=== PATIENT | male | born 1965 | race Caucasian/White ===

== ENCOUNTER 2018-05-15 13:37 | Inpatient (IN) | payer OTHER ==
[2018-05-15] MEDS ORDERED: PANTOPRAZOLE 40 MG/10 ML VIAL IVP STA (13:49)
[2018-05-15] MEDS ORDERED: SODIUM CHLORIDE 0.9% 1,000 ML IV STA (13:49)
[2018-05-15] MEDS ORDERED: ONDANSETRON 4 MG/2 ML VIAL IVP STA (14:23)
[2018-05-15] MEDS ORDERED: MORPHINE SULFATE 4 MG/ML SYRINGE IVP STA (14:24)
[2018-05-15 14:38] LABS: INR 1.4 (<1.2); Partial Thromboplastin Time 28.3 sec (22.0-30.0); Prothrombin Time 14.5 sec (9.0-12.0)
[2018-05-15 14:40] LABS: ALT 58 U/L (21-72); AST 119 U/L (17-59); Albumin 3.5 g/dL (3.5-5.0); Alkaline Phosphatase 99 U/L (38-126); Anion Gap 11 mmol/L; Basophils # (A) 0.1 k/uL (0-0.2); Basophils % (A) 1 %; Blood Urea Nitrogen 17 mg/dL (9-20); Carbon Dioxide 24 mmol/L (22-30); Chloride 107 mmol/L (98-107); Eosinophils # (A) 0.1 k/uL (0-0.7); Eosinophils % (A) 2 %; Glucose 162 mg/dL (74-99); HCT 43.2 % (39.0-53.0); HGB 14.9 gm/dL (13.0-17.5); Lipase 179 U/L (23-300); Lymphocytes # (A) 1.3 k/uL (1.0-4.8); Lymphocytes % (A) 17 %; MCH 33.8 pg (25.0-35.0); MCHC 34.5 g/dL (31.0-37.0); MCV 98.1 fL (80.0-100.0); Magnesium 1.4 mg/dL (1.6-2.3); Mean Platelet Volume 9.2; Monocytes # (A) 0.5 k/uL (0-1.0); Monocytes % (A) 6 %; Neutrophils # (A) 5.9 k/uL (1.3-7.7); Neutrophils % (A) 73 %; Potassium 4.3 mmol/L (3.5-5.1); RBC 4.41 m/uL (4.30-5.90); RDW 15.4 % (11.5-15.5); Sodium 142 mmol/L (137-145); Total Bilirubin 7.2 mg/dL (0.2-1.3); Total Protein 7.9 g/dL (6.3-8.2)
--- NOTE | 2018-05-15 14:48 | XR ---
EXAMINATION TYPE: XR chest 1V portable DATE OF EXAM: 05/15/2018 COMPARISON: NONE HISTORY: Hemoptysis TECHNIQUE: Single frontal view of the chest is obtained. FINDINGS: There are overlying cardiac leads. Patient is rotated. There is no focal air space opacity , pleural effusion, or pneumothorax seen. The cardiac silhouette size is within normal limits. The osseous structures are intact. IMPRESSION: No acute process.
--- NOTE | 2018-05-15 15:11 | ED ---
GI Bleed HPI - General Chief complaint: GI Bleed Stated complaint: Vomiting blood Time Seen by Provider: 05/15/18 13:49 Source: patient, RN notes reviewed Mode of arrival: ambulatory Limitations: no limitations - History of Present Illness Initial comments: This a 52-year-old male presents emergency Department with chief complaint of vomiting blood. Patient states started yesterday with some charcoal emesis yesterday and states that has now turned bright red blood. Patient states he has mild epigastric discomfort denies any chest pain or shortness breath. Patient states he had this problem 6 years ago from alcohol abuse. Patient states he drinks approximately every 3-4 days now. Patient states that he was never told he had varices or what the cause was in the past. Patient denies any dysuria, hematuria, melena or hematochezia. - Related Data Home Medications Medication Instructions Recorded Confirmed Ranitidine HCl [Zantac] 150 mg PO BID PRN 05/15/18 05/15/18 Allergies Allergy/AdvReac Type Severity Reaction Status Date / Time No Known Allergies Allergy Verified 05/15/18 14:56 Review of Systems ROS Statement: Those systems with pertinent positive or pertinent negative responses have been documented in the HPI. ROS Other: All systems not noted in ROS Statement are negative. Past Medical History Additional Past Medical History / Comment(s): treated 6 yrs ago for the same r/t ETOH History of Any Multi-Drug Resistant Organisms: None Reported Past Surgical History: No Surgical Hx Reported Past Psychological History: No Psychological Hx Reported Smoking Status: Current every day smoker Past Alcohol Use History: Heavy Past Drug Use History: None Reported General Exam Limitations: no limitations General appearance: alert, in no apparent distress Head exam: Present: atraumatic, normocephalic, normal inspection Eye exam: Present: normal appearance, PERRL, EOMI. Absent: scleral icterus, conjunctival injection, periorbital swelling ENT exam: Present: normal exam, normal oropharynx, mucous membranes moist, TM's normal bilaterally Neck exam: Present: normal inspection, full ROM. Absent: tenderness, meningismus, lymphadenopathy Respiratory exam: Present: normal lung sounds bilaterally. Absent: respiratory distress, wheezes, rales, rhonchi, stridor Cardiovascular Exam: Present: normal rhythm, tachycardia, normal heart sounds. Absent: systolic murmur, diastolic murmur, rubs, gallop, clicks GI/Abdominal exam: Present: soft, tenderness (Mild epigastric), normal bowel sounds. Absent: distended, guarding, rebound, rigid Course Vital Signs 05/15/18 13:41 Temperature 98.5 F Pulse Rate 132 H Respiratory 20 Rate Blood Pressure 141/86 O2 Sat by Pulse 98 Oximetry Medical Decision Making - Medical Decision Making 52-year-old male presented for hematemesis. Patient will be admitted with GI consult - Lab Data Result diagrams: 05/15/18 14:05 05/15/18 14:05 Lab Results 05/15/18 05/15/18 05/15/18 Range/Units 14:05 14:05 14:05 WBC 8.0 (3.8-10.6) k/uL RBC 4.41 (4.30-5.90) m/uL Hgb 14.9 (13.0-17.5) gm/dL Hct 43.2 (39.0-53.0) % MCV 98.1 (80.0-100.0) fL MCH 33.8 (25.0-35.0) pg MCHC 34.5 (31.0-37.0) g/dL RDW 15.4 (11.5-15.5) % Plt Count 98 L (150-450) k/uL Neutrophils % 73 % Lymphocytes % 17 % Monocytes % 6 % Eosinophils % 2 % Basophils % 1 % Neutrophils # 5.9 (1.3-7.7) k/uL Lymphocytes # 1.3 (1.0-4.8) k/uL Monocytes # 0.5 (0-1.0) k/uL Eosinophils # 0.1 (0-0.7) k/uL Basophils # 0.1 (0-0.2) k/uL Manual Slide Review Performed Target Cells Present PT 14.5 H (9.0-12.0) sec INR 1.4 H (<1.2) APTT 28.3 (22.0-30.0) sec Sodium 142 (137-145) mmol/L Potassium 4.3 (3.5-5.1) mmol/L Chloride 107 (98-107) mmol/L Carbon Dioxide 24 (22-30) mmol/L Anion Gap 11 mmol/L BUN 17 (9-20) mg/dL Creatinine 0.72 (0.66-1.25) mg/dL Est GFR (CKD-EPI)AfAm >90 (>60 ml/min/1.73 sqM) Est GFR (CKD-EPI)NonAf >90 (>60 ml/min/1.73 sqM) Glucose 162 H (74-99) mg/dL Calcium 9.0 (8.4-10.2) mg/dL Magnesium 1.4 L (1.6-2.3) mg/dL Total Bilirubin 7.2 H (0.2-1.3) mg/dL AST 119 H (17-59) U/L ALT 58 (21-72) U/L Alkaline Phosphatase 99 (38-126) U/L Troponin I (0.000-0.034) ng/mL Total Protein 7.9 (6.3-8.2) g/dL Albumin 3.5 (3.5-5.0) g/dL Lipase 179 (23-300) U/L 05/15/18 Range/Units 14:05 WBC (3.8-10.6) k/uL RBC (4.30-5.90) m/uL Hgb (13.0-17.5) gm/dL Hct (39.0-53.0) % MCV (80.0-100.0) fL MCH (25.0-35.0) pg MCHC (31.0-37.0) g/dL RDW (11.5-15.5) % Plt Count (150-450) k/uL Neutrophils % % Lymphocytes % % Monocytes % % Eosinophils % % Basophils % % Neutrophils # (1.3-7.7) k/uL Lymphocytes # (1.0-4.8) k/uL Monocytes # (0-1.0) k/uL Eosinophils # (0-0.7) k/uL Basophils # (0-0.2) k/uL Manual Slide Review Target Cells PT (9.0-12.0) sec INR (<1.2) APTT (22.0-30.0) sec Sodium (137-145) mmol/L Potassium (3.5-5.1) mmol/L Chloride (98-107) mmol/L Carbon Dioxide (22-30) mmol/L Anion Gap mmol/L BUN (9-20) mg/dL Creatinine (0.66-1.25) mg/dL Est GFR (CKD-EPI)AfAm (>60 ml/min/1.73 sqM) Est GFR (CKD-EPI)NonAf (>60 ml/min/1.73 sqM) Glucose (74-99) mg/dL Calcium (8.4-10.2) mg/dL Magnesium (1.6-2.3) mg/dL Total Bilirubin (0.2-1.3) mg/dL AST (17-59) U/L ALT (21-72) U/L Alkaline Phosphatase (38-126) U/L Troponin I 0.017 (0.000-0.034) ng/mL Total Protein (6.3-8.2) g/dL Albumin (3.5-5.0) g/dL Lipase (23-300) U/L - EKG Data EKG Comments: EKG performed at 14:21 sinus tachycardia with a rate of 110 OH 158 QRS 62 QT/QTC 312/422 Critical Care Time Critical Care Time: Yes Total Critical Care Time: 35 Critical Care Time: 35 minutes of critical care time her initially used to evaluate the patient, reviewed vitals, reviewed past medical history. Lab work including CBC, CMP, PT/INR were ordered. This did reveal a normal hemoglobin, elevated INR, hyperbilirubinemia and mild transaminitis. This is related to his alcohol int daniel. Patient was admitted for upper GI bleed most likely alcoholic gastritis versus esophageal varices. Patient is given Protonix 80 mg, Sandostatin. Case discussed with admitting physician consult to GI. Patient will be placed in telemetry. Disposition Clinical Impression: Upper GI bleed, Alcohol abuse, Hyperbilirubinemia Disposition: ADMITTED IP TO THIS HOSP Condition: Fair Referrals: Tony Khanna III, MD [Primary Care Provider] - 1-2 days
[2018-05-15 15:23] LABS: Platelet Count 98 k/uL (150-450); Target Cells Present
[2018-05-15] MEDS ORDERED: OCTREOTIDE 100 MCG/ML INJ IVP STA (15:32)
[2018-05-15] MEDS ORDERED: NALOXONE 0.4 MG/ML 1 ML VIAL IV PRN (15:34)
[2018-05-15] MEDS: SODIUM CHLORIDE 0.9% 1,000 ML IV SCH (16:13)
[2018-05-15] MEDS: MORPHINE SULFATE 4 MG/ML SYRINGE IV PRN ×2 (19:23→23:46)
[2018-05-15 21:24] LABS: Basophils % (A) 1 %; Eosinophils # (A) 0.1 k/uL (0-0.7); Eosinophils % (A) 2 %; HCT 39.7 % (39.0-53.0); HGB 13.3 gm/dL (13.0-17.5); Lymphocytes # (A) 1.2 k/uL (1.0-4.8); Lymphocytes % (A) 20 %; MCH 33.2 pg (25.0-35.0); MCHC 33.4 g/dL (31.0-37.0); MCV 99.4 fL (80.0-100.0); Macrocytosis Slight; Mean Platelet Volume 9.9; Monocytes # (A) 0.4 k/uL (0-1.0); Monocytes % (A) 6 %; Neutrophils # (A) 4.1 k/uL (1.3-7.7); Neutrophils % (A) 70 %; RDW 15.4 % (11.5-15.5); WBC 5.9 k/uL (3.8-10.6)
[2018-05-15 21:37] LABS: Platelet Count 68 k/uL (150-450)
[2018-05-15] MEDS ORDERED: Magnesium Replacement Protocol 1 EACH MISC MISCELLANE PRN (21:43)
[2018-05-15] MEDS: PANTOPRAZOLE 40 MG/10 ML VIAL IV SCH (22:23)
[2018-05-15] MEDS: MAGNESIUM SULFATE-D5W PMX 1 GM in DEXTROSE/WATER 1 100ML.BAG IVPB SCH ×2 (22:23→23:47)
[2018-05-15] MEDS: ONDANSETRON 4 MG/2 ML VIAL IVP PRN (22:23)
--- NOTE | 2018-05-15 22:55 | P.HPIM ---
History of Present Illness H&P Date: 05/15/18 Chief Complaint: Blood in the vomitus Patient is a 52-year-old male with a known history of smoking and history of heavy alcohol abuse previously came to ER with complaints of vomiting blood. Patient did have dark-colored vomitus yesterday and bright red blood today. Patient also having mild epigastric discomfort and pain. Denied any dizziness or lightheadedness. No fever no chills. Patient used to drink heavily previously. Currently is not drinking on a daily basis. His last drink was 3-4 days ago. Patient did have dark-colored stools one time yesterday. Patient says that is currently in a stressful situation at home. Patient was on antibiotics for bronchitis recently. No fever no chills. Patient does have nausea. Nausea did improve with Zofran in the ER. No leg swelling. Chest x-ray showed no acute process EKG showed sinus tachycardia. Patient does have elevated AST level and INR is 1.4 Review of Systems Constitutional: Patient denies any fever or chills . No generalized weakness or weight loss. Abdomen: Patient does have nausea and blood vomitus. Epigastric abdominal pain. No diarrhea.. Cardiovascular: Patient denies any chest pain or short of breath no palpitations. Respiratory: patient denied any cough is from production. No shortness of breath Neurologic: Patient denied any numbness or tingling headache. Musculoskeletal: Patient denies any complaints of joint swelling or deformity. Skin: Negative Psychiatric: Negative Endocrine: No heat or cold intolerance. No recent weight gain. Genitourinary: No dysuria or hematuria. All other 14 point ROS negative except the above Past Medical History Additional Past Medical History / Comment(s): treated 6 yrs ago for the same r/t ETOH History of Any Multi-Drug Resistant Organisms: None Reported Past Surgical History: No Surgical Hx Reported Past Psychological History: No Psychological Hx Reported Smoking Status: Current every day smoker Past Alcohol Use History: Heavy Past Drug Use History: None Reported Medications and Allergies Home Medications Medication Instructions Recorded Confirmed Type Ranitidine HCl [Zantac] 150 mg PO BID PRN 05/15/18 05/15/18 History Allergies Allergy/AdvReac Type Severity Reaction Status Date / Time No Known Allergies Allergy Verified 05/15/18 14:56 Physical Exam Vitals: Vital Signs Temp Pulse Resp BP Pulse Ox 04/05/19 20:20 103 H 18 138/87 95 05/15/18 20:10 117 H 18 136/78 95 05/15/18 20:00 112 H 16 128/81 93 L 05/15/18 19:50 120 H 13 128/81 95 05/15/18 19:40 109 H 9 L 125/114 94 L 05/15/18 19:30 105 H 15 117/83 93 L 05/15/18 19:20 113 H 10 L 117/83 95 05/15/18 19:10 109 H 7 L 152/90 94 L 05/15/18 19:00 111 H 12 150/95 93 L 05/15/18 18:50 114 H 12 150/95 95 05/15/18 18:40 109 H 19 150/98 94 L 05/15/18 18:30 98.8 F 116 H 14 158/103 94 L 05/15/18 18:20 112 H 13 158/103 93 L 05/15/18 18:10 112 H 16 155/104 93 L 05/15/18 18:00 112 H 16 149/99 94 L 05/15/18 17:50 112 H 18 149/99 94 L 05/15/18 17:40 110 H 18 141/99 93 L 05/15/18 17:30 111 H 19 149/99 05/15/18 17:20 112 H 14 149/99 95 05/15/18 17:10 12 157/105 05/15/18 17:00 118 H 12 137/91 95 05/15/18 16:50 111 H 25 H 137/91 95 05/15/18 16:40 112 H 18 141/105 94 L 05/15/18 16:30 107 H 14 157/111 94 L 05/15/18 16:20 97 14 157/111 95 05/15/18 16:10 109 H 23 134/102 95 05/15/18 16:00 118 H 32 H 127/100 96 05/15/18 15:50 111 H 14 127/100 95 05/15/18 15:40 112 H 12 127/100 96 05/15/18 15:30 121 H 16 152/103 96 05/15/18 15:20 110 H 14 152/103 94 L 05/15/18 15:10 105 H 14 149/104 95 05/15/18 15:00 120 H 16 141/102 95 05/15/18 14:50 113 H 13 141/102 96 05/15/18 14:40 112 H 14 166/100 96 05/15/18 14:30 124 H 14 140/106 98 05/15/18 14:20 106 H 25 H 140/106 96 05/15/18 14:10 114 H 14 122/108 97 05/15/18 14:06 29 H 05/15/18 13:41 98.5 F 132 H 20 141/86 98 Intake and Output 05/15/18 05/15/18 05/15/18 06:59 14:59 22:59 Intake Total 1000 Balance 1000 Intake: Amount of Fluid Infused ( 1000 ml) Other: Weight 105.823 kg PHYSICAL EXAMINATION: Patient is lying in the bed comfortably, no acute distress, awake alert and oriented.. HEENT: Normocephalic. Neck is supple. Pupils reactive. Nostrils clear. Oral cavity is moist. Ears reveal no drainage. Neck reveals no JVD, carotid bruits, or thyromegaly. CHEST EXAMINATION: Trachea is central. Symmetrical expansion. Lung campbell clear to auscultation and percussion. CARDIAC: Normal S1, S2 with no gallops. No murmurs ABDOMEN: Soft. Bowel sounds normal. No organomegaly. No abdominal bruits. Extremities: reveal no edema. No clubbing or cyanosis Neurologically awake, alert, oriented x3 with well-coordinated movements. No focal deficits noted Skin: No rash or skin lesions. Psychiatric: Coperative. Nonsuicidal Musculoskeletal: No joint swelling or deformity. Normal range of motion. Results CBC & Chem 7: 05/15/18 20:20 05/15/18 14:05 Labs: Abnormal Lab Results - Last 24 Hours (Table) 05/15/18 05/15/18 05/15/18 Range/Units 14:05 14:05 14:05 RBC (4.30-5.90) m/uL Plt Count 98 L (150-450) k/uL PT 14.5 H (9.0-12.0) sec INR 1.4 H (<1.2) Glucose 162 H (74-99) mg/dL Magnesium 1.4 L (1.6-2.3) mg/dL Total Bilirubin 7.2 H (0.2-1.3) mg/dL AST 119 H (17-59) U/L 05/15/18 Range/Units 20:20 RBC 4.00 L (4.30-5.90) m/uL Plt Count 68 L (150-450) k/uL PT (9.0-12.0) sec INR (<1.2) Glucose (74-99) mg/dL Magnesium (1.6-2.3) mg/dL Total Bilirubin (0.2-1.3) mg/dL AST (17-59) U/L Thrombosis Risk Factor Assmnt - DVT/VTE Prophylaxis DVT/VTE Prophylaxis: Mechanical Prophylaxis ordered Assessment and Plan Assessment: Acute upper GI bleed. Likely alcohol related. Gastritis, ulcer, variceal versus tear. Acute blood loss anemia Elevated liver enzymes and INR/coagulopathy due to chronic liver disease History of heavy alcohol use Nicotine addiction DVT prophylaxis with SCDs Plan: Patient be continued on IV hydration, IV Protonix and nothing by mouth. Monitor H&H. Gastroenterology was consulted. We will follow up closely and further recommendations based on the clinical course. Time with Patient: Greater than 30
[2018-05-16 00:44] VITALS: BMI 31.6
[2018-05-16] MEDS: MAGNESIUM SULFATE-D5W PMX 1 GM in DEXTROSE/WATER 1 100ML.BAG IVPB SCH (01:01)
[2018-05-16] MEDS: SODIUM CHLORIDE 0.9% 1,000 ML IV SCH ×3 (01:02→20:57)
[2018-05-16] MEDS: OCTREOTIDE 100 MCG/ML INJ IVP SCH ×3 (03:27→18:05)
[2018-05-16] MEDS: MORPHINE SULFATE 4 MG/ML SYRINGE IV PRN ×4 (03:33→21:49)
[2018-05-16] MEDS: ONDANSETRON 4 MG/2 ML VIAL IVP PRN (06:53)
[2018-05-16 09:05] LABS: Basophils % (A) 1 %; Eosinophils # (A) 0.2 k/uL (0-0.7); Eosinophils % (A) 3 %; HCT 37.5 % (39.0-53.0); HGB 12.3 gm/dL (13.0-17.5); Lymphocytes # (A) 1.1 k/uL (1.0-4.8); Lymphocytes % (A) 19 %; MCH 32.8 pg (25.0-35.0); MCHC 32.9 g/dL (31.0-37.0); MCV 99.7 fL (80.0-100.0); Macrocytosis Slight; Mean Platelet Volume 9.5; Monocytes # (A) 0.4 k/uL (0-1.0); Monocytes % (A) 7 %; Neutrophils % (A) 70 %; RBC 3.76 m/uL (4.30-5.90); RDW 14.9 % (11.5-15.5); WBC 5.8 k/uL (3.8-10.6)
[2018-05-16 09:10] LABS: Platelet Count 62 k/uL (150-450)
[2018-05-16 09:11] LABS: Anion Gap 7 mmol/L; Blood Urea Nitrogen 18 mg/dL (9-20); Carbon Dioxide 25 mmol/L (22-30); Chloride 109 mmol/L (98-107); Glucose 117 mg/dL (74-99); Potassium 4.2 mmol/L (3.5-5.1); Sodium 141 mmol/L (137-145)
[2018-05-16] MEDS: PANTOPRAZOLE 40 MG/10 ML VIAL IV SCH ×2 (09:55→20:50)
[2018-05-16] MEDS ORDERED: MAGNESIUM SULFATE-D5W PMX 1 GM in DEXTROSE/WATER 1 100ML.BAG IVPB ONE (16:23)
--- NOTE | 2018-05-17 01:38 | P.PN ---
Subjective Progress Note Date: 05/16/18 Principal diagnosis: Acute GI bleed Patient is a 52-year-old male with a known history of smoking and history of heavy alcohol abuse previously came to ER with complaints of vomiting blood. Patient did have dark-colored vomitus yesterday and bright red blood today. Patient also having mild epigastric discomfort and pain. Denied any dizziness or lightheadedness. No fever no chills. Patient used to drink heavily previously. Currently is not drinking on a daily basis. His last drink was 3-4 days ago. Patient did have dark-colored stools one time yesterday. Patient sa ys that is currently in a stressful situation at home. Patient was on antibiotics for bronchitis recently. No fever no chills. Patient does have nausea. Nausea did improve with Zofran in the ER. No leg swelling. Chest x-ray showed no acute process EKG showed sinus tachycardia. Patient does have elevated AST level and INR is 1.4, hemoglobin 14.9 05/16/2018 Patient denied any further episodes of hematemesis. Hemoglobin is 12.3 today. Patient is being continued on Protonix. No complaints of chest pain or shortness of breath. Patient is lying in the bed comfortably. No other acute overnight issues. GI was consulted. No fever no chills. No nausea vomiting or diarrhea. No headache or dizziness or lightheadedness. Current medications reviewed. Objective - Vital Signs Vital signs: Vital Signs Temp 98.3 F 05/16/18 12:00 Pulse 103 H 05/16/18 16:00 Resp 18 05/16/18 16:00 BP 136/85 05/16/18 16:00 Pulse Ox 94 L 05/16/18 16:00 Intake & Output 05/16/18 05/16/18 05/17/18 06:59 18:59 06:59 Intake Total 2140 360 Balance 2140 360 Weight 105 kg Intake: Amount of Fluid Infused ( 1000 ml) Intake, IV Titration 600 Amount Magnesium Sulfate-D5w Pmx 200 1 gm In Dextrose/Water 1 100ml.bag @ 100 mls/hr IVPB Q1H [facility] Rx#: [id number] Sodium Chloride 0.9% 1, 400 000 ml @ 100 mls/hr IV . Q10H [facility] Rx#:[id number] Oral 360 Other 540 Other: Voiding Method Toilet Toilet # Voids 1 1 1 # Bowel Movements 2 - Exam PHYSICAL EXAMINATION: Patient is lying in the bed comfortably, no acute distress, awake alert and oriented.. HEENT: Normocephalic. Neck is supple. Pupils reactive. Nostrils clear. Oral cavity is moist. Ears reveal no drainage. Neck reveals no JVD, carotid bruits, or thyromegaly. CHEST EXAMINATION: Trachea is central. Symmetrical expansion. Lung campbell clear to auscultation and percussion. CARDIAC: Normal S1, S2 with no gallops. No murmurs ABDOMEN: Soft. Bowel sounds normal. No organomegaly. No abdominal bruits. Extremities: reveal no edema. No clubbing or cyanosis Neurologically awake, alert, oriented x3 with well-coordinated movements. No focal deficits noted Skin: No rash or skin lesions. Psychiatric: Coperative. Nonsuicidal Musculoskeletal: No joint swelling or deformity. Normal range of motion. - Labs CBC & Chem 7: 05/16/18 06:14 05/16/18 06:14 Labs: Abnormal Lab Results - Last 24 Hours (Table) 05/16/18 05/16/18 Range/Units 06:14 06:14 RBC 3.76 L (4.30-5.90) m/uL Hgb 12.3 L (13.0-17.5) gm/dL Hct 37.5 L (39.0-53.0) % Plt Count 62 L (150-450) k/uL Chloride 109 H (98-107) mmol/L Glucose 117 H (74-99) mg/dL Calcium 8.0 L (8.4-10.2) mg/dL Assessment and Plan Assessment: Acute upper GI bleed. Likely alcohol related. Gastritis, ulcer, variceal versus tear. Acute blood loss anemia Hyperbilirubinemia Elevated liver enzymes and INR/coagulopathy due to chronic liver disease History of heavy alcohol use Nicotine addiction DVT prophylaxis with SCDs Plan: Patient be continued on IV hydration, IV Protonix and nothing by mouth. Monitor H&H. Gastroenterology is following. We will follow up closely and further recommendations based on the clinical course. Time with Patient: Greater than 30
[2018-05-17] MEDS: MORPHINE SULFATE 4 MG/ML SYRINGE IV PRN ×3 (02:36→19:56)
[2018-05-17] MEDS: OCTREOTIDE 100 MCG/ML INJ IVP SCH ×2 (04:16→10:11)
[2018-05-17 07:21] LABS: ALT 48 U/L (21-72); AST 105 U/L (17-59); Albumin 2.6 g/dL (3.5-5.0); Alkaline Phosphatase 76 U/L (38-126); Anion Gap 5 mmol/L; Blood Urea Nitrogen 15 mg/dL (9-20); Calcium 7.5 mg/dL (8.4-10.2); Carbon Dioxide 26 mmol/L (22-30); Chloride 110 mmol/L (98-107); Glucose 95 mg/dL (74-99); Potassium 3.9 mmol/L (3.5-5.1); Sodium 141 mmol/L (137-145); Total Bilirubin 3.9 mg/dL (0.2-1.3); Total Protein 6.1 g/dL (6.3-8.2)
[2018-05-17 07:40] LABS: Basophils % (A) 1 %; Eosinophils # (A) 0.2 k/uL (0-0.7); Eosinophils % (A) 6 %; HCT 33.4 % (39.0-53.0); HGB 11.1 gm/dL (13.0-17.5); Lymphocytes # (A) 0.8 k/uL (1.0-4.8); Lymphocytes % (A) 24 %; MCH 33.4 pg (25.0-35.0); MCHC 33.2 g/dL (31.0-37.0); MCV 100.5 fL (80.0-100.0); Macrocytosis Slight; Mean Platelet Volume 9.8; Monocytes # (A) 0.2 k/uL (0-1.0); Monocytes % (A) 6 %; Neutrophils # (A) 2.1 k/uL (1.3-7.7); Neutrophils % (A) 60 %; RBC 3.32 m/uL (4.30-5.90); WBC 3.4 k/uL (3.8-10.6)
[2018-05-17 07:50] LABS: Platelet Count 50 k/uL (150-450)
[2018-05-17] MEDS: PANTOPRAZOLE 40 MG/10 ML VIAL IV SCH (08:42)
[2018-05-17] MEDS: MAGNESIUM SULFATE-D5W PMX 1 GM in DEXTROSE/WATER 1 100ML.BAG IVPB SCH ×2 (10:11→12:30)
[2018-05-17] MEDS ORDERED: MIDAZOLAM 2 MG/2 ML VIAL ONE (12:14)
[2018-05-17] MEDS ORDERED: PROPOFOL 10 MG/ML 20 ML VIAL IV ONE (12:14)
[2018-05-17] MEDS ORDERED: IV FLUID CONTINUATION 1,000 ML IV ONE (12:23)
--- NOTE | 2018-05-17 12:24 | P.CONS ---
History of Present Illness - Reason for Consult Consult date: 05/16/18 Hematemesis - History of Present Illness This a 52-year-old male presents emergency Department with chief complaint of vomiting blood. Patient states started yesterday with some charcoal emesis yesterday and states that has now turned bright red blood. Patient states he has mild epigastric discomfort denies any chest pain or shortness breath. Patient states he had this problem 6 years ago from alcohol abuse. Patient states he drinks approximately every 3-4 days now. Patient states that he was never told he had varices or what the cause was in the past. Patient denies any dysuria, hematuria, melena or hematochezia. Review of Systems CONSTITUTIONAL: Denies any fevers, chills, weight change or fatigue. CARDIOVASCULAR: Denies any chest pain, palpitations high or low blood pressures RESPIRATORY: Denies any shortness of breath, hemoptysis or cough. GENITOURINARY: No dysuria or hematuria. MUSCULOSKELETAL: No weakness reported. SKIN: Denies any new rashes or lesions, jaundice or pallor. PSYCHIATRIC: Denies any depression or anxiety. NEUROLOGY: Denies headache, denies any new focal deficits. EARS/NOSE/THROAT: No recent hearing change, congestion, nasal discharge or sore throat. EYES: No pain in eyes, discharge or change in vision. GASTROINTESTINAL: As per HPI. Past Medical History Past Medical History: GI Bleed Additional Past Medical History / Comment(s): treated 6 yrs ago for the same r/t ETOH History of Any Multi-Drug Resistant Organisms: None Reported Past Surgical History: No Surgical Hx Reported Past Anesthesia/Blood Transfusion Reactions: No Reported Reaction Past Psychological History: No Psychological Hx Reported Smoking Status: Current every day smoker Past Alcohol Use History: Heavy Past Drug Use History: None Reported - Past Family History Father Additional Family Medical History / Comment(s): patient state his dads side had heart disease and leukemia Mother Additional Family Medical History / Comment(s): chrones disease Medications and Allergies Home Medications Medication Instructions Recorded Confirmed Type Ranitidine HCl [Zantac] 150 mg PO BID PRN 05/15/18 05/15/18 History Allergies Allergy/AdvReac Type Severity Reaction Status Date / Time No Known Allergies Allergy Verified 05/15/18 14:56 Physical Exam Vitals: Vital Signs Temp Pulse Pulse Resp BP BP Pulse Ox 05/16/18 02:00 97.9 F 110 H 18 138/81 93 L 05/15/18 22:05 107 H 18 05/15/18 21:45 98.3 F 107 H 18 149/72 97 05/15/18 20:20 103 H 18 138/87 95 05/15/18 20:10 117 H 18 136/78 95 05/15/18 20:00 112 H 16 128/81 93 L 05/15/18 19:50 120 H 13 128/81 95 05/15/18 19:40 109 H 9 L 125/114 94 L 05/15/18 19:30 105 H 15 117/83 93 L 05/15/18 19:20 113 H 10 L 117/83 95 05/15/18 19:10 109 H 7 L 152/90 94 L 05/15/18 19:00 111 H 12 150/95 93 L 05/15/18 18:50 114 H 12 150/95 95 05/15/18 18:40 109 H 19 150/98 94 L 05/15/18 18:30 98.8 F 116 H 14 158/103 94 L 05/15/18 18:20 112 H 13 158/103 93 L 05/15/18 18:10 112 H 16 155/104 93 L 05/15/18 18:00 112 H 16 149/99 94 L 05/15/18 17:50 112 H 18 149/99 94 L 05/15/18 17:40 110 H 18 141/99 93 L 05/15/18 17:30 111 H 19 149/99 05/15/18 17:20 112 H 14 149/99 95 05/15/18 17:10 12 157/105 05/15/18 17:00 118 H 12 137/91 95 05/15/18 16:50 111 H 25 H 137/91 95 05/15/18 16:40 112 H 18 141/105 94 L 05/15/18 16:30 107 H 14 157/111 94 L 05/15/18 16:20 97 14 157/111 95 05/15/18 16:10 109 H 23 134/102 95 05/15/18 16:00 118 H 32 H 127/100 96 05/15/18 15:50 111 H 14 127/100 95 05/15/18 15:40 112 H 12 127/100 96 05/15/18 15:30 121 H 16 152/103 96 05/15/18 15:20 110 H 14 152/103 94 L 05/15/18 15:10 105 H 14 149/104 95 05/15/18 15:00 120 H 16 141/102 95 05/15/18 14:50 113 H 13 141/102 96 05/15/18 14:40 112 H 14 166/100 96 05/15/18 14:30 124 H 14 140/106 98 05/15/18 14:20 106 H 25 H 140/106 96 05/15/18 14:10 114 H 14 122/108 97 05/15/18 14:06 29 H 05/15/18 13:41 98.5 F 132 H 20 141/86 98 Intake and Output 05/15/18 05/16/18 05/16/18 22:59 06:59 14:59 Intake Total 1000 1140 120 Balance 1000 1140 120 Intake: Amount of Fluid Infused ( 1000 ml) Intake, IV Titration 600 Amount Magnesium Sulfate-D5w Pmx 200 1 gm In Dextrose/Water 1 100ml.bag @ 100 mls/hr IVPB Q1H [facility] Rx#: [id number] Sodium Chloride 0.9% 1, 400 000 ml @ 100 mls/hr IV . Q10H [facility] Rx#:[id number] Oral 120 Other 540 Other: Voiding Method Toilet Toilet # Voids 1 # Bowel Movements 2 Weight 105 kg On physical examination, patient appears very pleasant, stated age in no apparent distress. HEAD: Normocephalic, atraumatic. EYES: No scleral icterus. No conjunctival injection. MOUTH: No lesions, tongue midline. NECK: Trachea midline, no gross abnormalities. CHEST: Clear to auscultation with no wheezing or rhonchi appreciated. HEART: Regular, no abnormal solids, murmurs, gallops or friction rubs. ABDOMEN: Soft. Bowel sounds are positive. No organomegaly. No guarding or rigidity. EXTREMITIES: No pedal edema. SKIN: No rashes, no jaundice. NEUROLOGIC: Alert and oriented. No focal deficits. Results CBC & Chem 7: 05/17/18 05:53 05/17/18 05:53 Labs: Abnormal Lab Results - Last 24 Hours (Table) 05/15/18 05/15/18 05/15/18 Range/Units 14:05 14:05 14:05 RBC (4.30-5.90) m/uL Hgb (13.0-17.5) gm/dL Hct (39.0-53.0) % Plt Count 98 L (150-450) k/uL PT 14.5 H (9.0-12.0) sec INR 1.4 H (<1.2) Chloride (98-107) mmol/L Glucose 162 H (74-99) mg/dL Calcium (8.4-10.2) mg/dL Magnesium 1.4 L (1.6-2.3) mg/dL Total Bilirubin 7.2 H (0.2-1.3) mg/dL AST 119 H (17-59) U/L 05/15/18 05/16/18 05/16/18 Range/Units 20:20 06:14 06:14 RBC 4.00 L 3.76 L (4.30-5.90) m/uL Hgb 12.3 L (13.0-17.5) gm/dL Hct 37.5 L (39.0-53.0) % Plt Count 68 L 62 L (150-450) k/uL PT (9.0-12.0) sec INR (<1.2) Chloride 109 H (98-107) mmol/L Glucose 117 H (74-99) mg/dL Calcium 8.0 L (8.4-10.2) mg/dL Magnesium (1.6-2.3) mg/dL Total Bilirubin (0.2-1.3) mg/dL AST (17-59) U/L Assessment and Plan Assessment: GI bleeding, could be secondary to mucosal tears, varices or peptic ulcer disease. Plan: We will proceed with EGD tomorrow.
--- NOTE | 2018-05-17 12:42 | P.PCN ---
Date of Procedure: 05/17/18 Procedure(s) Performed: Procedure: Esophagogastroduodenoscopy. Preoperative diagnosis: Upper GI bleeding. Postoperative diagnosis: Gastritis and duodenitis with no active bleeding at the time of this exam. Preparation and sedation: Was provided by anesthesia. Brief clinical history: The patient is a 52-year-old male who presented to the Emergency Department with chief complaint of vomiting blood. Patient states started to have some coffee ground emesis the day prior to admission then turns bloody on day of admission. Patient states he has mild epigastric discomfort denies any chest pain or shortness breath. Patient states he had this problem 6 years ago from alcohol abuse. Patient states he drinks approximately every 3-4 days now. Patient states that he was never told he had varices or what the cause was in the past. Patient denies any dysuria, hematuria, melena or hematochezia. The details are summarized in the history and physical and dictated consultations and progress note. This evaluation is to assess for a source of upper GI bleeding. Procedure: With the patient on his left lateral decubitus position and after informed consent and adequate sedation, I passed the Olympus-GIF date 119 video upper endoscope through the cricopharyngeus down the esophagus. The esophagus did not show any obvious varices, erosions or ulcers or any mucosal tears or bleeding. The endoscope was then passed into the stomach. No definite hiatal hernia. The stomach was insufflated with air and inspected in detail including the retroflex view in the cardia. There was diffuse mild mottling and erythema consistent with mild gastritis but no ulcers, bleeding or gastric varices. Pyloric channel did not show any ulcers. Duodenal bulb, post bulbar area and descending duodenum showed some erythema and minimal friability with no ulcers or bleeding. No biopsies were indicated then the endoscope was withdrawn. The patient tolerated the procedure well. Plan: The patient was reassured. I suspect, the bleeding could have originated any mucosal tears secondary to his vomiting which could have been related to alcoholic gastritis. We will advise complete and total abstinence from drinking alcohol and allow diet as tolerated. Further plans based on his course. Would be happy to see in the office to comanage what appears to be alcoholic liver disease.
[2018-05-17] MEDS: SODIUM CHLORIDE 0.9% 1,000 ML IV SCH ×2 (19:44→19:58)
[2018-05-17] MEDS: PANTOPRAZOLE 40 MG TABLET PO SCH (19:56)
--- NOTE | 2018-05-18 | P.PN ---
Subjective Progress Note Date: 05/17/18 Principal diagnosis: Acute GI bleed Patient is a 52-year-old male with a known history of smoking and history of heavy alcohol abuse previously came to ER with complaints of vomiting blood. Patient did have dark-colored vomitus yesterday and bright red blood today. Patient also having mild epigastric discomfort and pain. Denied any dizziness or lightheadedness. No fever no chills. Patient used to drink heavily previously. Currently is not drinking on a daily basis. His last drink was 3-4 days ago. Patient did have dark-colored stools one time yesterday. Patient sa ys that is currently in a stressful situation at home. Patient was on antibiotics for bronchitis recently. No fever no chills. Patient does have nausea. Nausea did improve with Zofran in the ER. No leg swelling. Chest x-ray showed no acute process EKG showed sinus tachycardia. Patient does have elevated AST level and INR is 1.4, hemoglobin 14.9 05/16/2018 Patient denied any further episodes of hematemesis. Hemoglobin is 12.3 today. Patient is being continued on Protonix. No complaints of chest pain or shortness of breath. Patient is lying in the bed comfortably. No other acute overnight issues. GI was consulted. No fever no chills. No nausea vomiting or diarrhea. No headache or dizziness or lightheadedness. 05/17/2018 Patient denied any complaints of dizziness or lightheadedness. No chest pain or shortness of breath. No nausea vomiting or diarrhea. EGD showed Gastritis and duodenitis with no active bleeding at the time of this exam. Patient is being continued on PPI. Monitor H&H. If hemoglobin is stable, anticipate discharge in next 24 hours. Recommends outpatient GI follow- up. Current medications reviewed. Objective - Vital Signs Vital signs: Vital Signs Temp 98.5 F 05/17/18 16:00 Pulse 90 05/17/18 16:00 Resp 18 05/17/18 16:00 BP 123/77 05/17/18 16:00 Pulse Ox 95 05/17/18 16:00 Intake & Output 05/17/18 05/17/18 05/18/18 06:59 18:59 06:59 Intake Total 1480 440 Balance 1480 440 Weight 99.2 kg Intake: IV 200 Intake, IV Titration 1000 Amount Sodium Chloride 0.9% 1, 1000 000 ml @ 100 mls/hr IV . Q10H [facility] Rx#:[id number] Oral 480 240 Other: Voiding Method Toilet Toilet # Voids 4 # Bowel Movements 1 - Exam PHYSICAL EXAMINATION: Patient is lying in the bed comfortably, no acute distress, awake alert and oriented.. HEENT: Normocephalic. Neck is supple. Pupils reactive. Nostrils clear. Oral cavity is moist. Ears reveal no drainage. Neck reveals no JVD, carotid bruits, or thyromegaly. CHEST EXAMINATION: Trachea is central. Symmetrical expansion. Lung campbell clear to auscultation and percussion. CARDIAC: Normal S1, S2 with no gallops. No murmurs ABDOMEN: Soft. Bowel sounds normal. No organomegaly. No abdominal bruits. Extremities: reveal no edema. No clubbing or cyanosis Neurologically awake, alert, oriented x3 with well-coordinated movements. No focal deficits noted Skin: No rash or skin lesions. Psychiatric: Coperative. Nonsuicidal Musculoskeletal: No joint swelling or deformity. Normal range of motion. - Labs CBC & Chem 7: 05/17/18 05:53 05/17/18 05:53 Labs: Abnormal Lab Results - Last 24 Hours (Table) 05/17/18 05/17/18 Range/Units 05:53 05:53 WBC 3.4 L (3.8-10.6) k/uL RBC 3.32 L (4.30-5.90) m/uL Hgb 11.1 L (13.0-17.5) gm/dL Hct 33.4 L (39.0-53.0) % MCV 100.5 H (80.0-100.0) fL Plt Count 50 L (150-450) k/uL Lymphocytes # 0.8 L (1.0-4.8) k/uL Chloride 110 H (98-107) mmol/L Calcium 7.5 L (8.4-10.2) mg/dL Total Bilirubin 3.9 H (0.2-1.3) mg/dL AST 105 H (17-59) U/L Total Protein 6.1 L (6.3-8.2) g/dL Albumin 2.6 L (3.5-5.0) g/dL Assessment and Plan Assessment: Acute upper GI bleed. Status post EGD.Gastritis and duodenitis with no active bleeding. Acute blood loss anemia Hyperbilirubinemia Elevated liver enzymes and INR/coagulopathy due to chronic liver disease History of heavy alcohol use Nicotine addiction DVT prophylaxis with SCDs Plan: Patient be continued on IV hydration, IV Protonix and nothing by mouth. Protonix changed to by mouth. Monitor H&H. Gastroenterology is following. We will follow up closely and further recommendations based on the clinical course. Time with Patient: Greater than 30
[2018-05-18] MEDS: MORPHINE SULFATE 4 MG/ML SYRINGE IV PRN ×3 (01:13→09:25)
[2018-05-18] MEDS: PANTOPRAZOLE 40 MG TABLET PO SCH (05:53)
[2018-05-18] MEDS: SODIUM CHLORIDE 0.9% 1,000 ML IV SCH ×2 (06:00→09:15)
[2018-05-18 06:06] VITALS: PULSE 95
[2018-05-18 06:30] LABS: Basophils % (A) 1 %; Eosinophils # (A) 0.2 k/uL (0-0.7); Eosinophils % (A) 5 %; HCT 34.1 % (39.0-53.0); Lymphocytes # (A) 0.9 k/uL (1.0-4.8); Lymphocytes % (A) 24 %; MCH 32.5 pg (25.0-35.0); MCHC 32.1 g/dL (31.0-37.0); MCV 101.3 fL (80.0-100.0); Macrocytosis Slight; Mean Platelet Volume 10.1; Monocytes # (A) 0.2 k/uL (0-1.0); Monocytes % (A) 6 %; Neutrophils # (A) 2.4 k/uL (1.3-7.7); Neutrophils % (A) 63 %; RBC 3.37 m/uL (4.30-5.90); RDW 14.6 % (11.5-15.5); WBC 3.8 k/uL (3.8-10.6)
[2018-05-18 06:33] LABS: Platelet Count 46 k/uL (150-450)
[2018-05-18 06:42] LABS: Anion Gap 3 mmol/L; Blood Urea Nitrogen 11 mg/dL (9-20); Calcium 7.4 mg/dL (8.4-10.2); Carbon Dioxide 28 mmol/L (22-30); Chloride 107 mmol/L (98-107); Glucose 98 mg/dL (74-99); Magnesium 1.8 mg/dL (1.6-2.3); Potassium 3.6 mmol/L (3.5-5.1); Sodium 138 mmol/L (137-145)
[2018-05-18 10:58] VITALS: BP 114/66; RESP 12; TEMP 98.7
== END 2018-05-18 11:20 | disposition home or self-care (01) | DRG 378 ==
LOC: EC 13:37 → 3SCARD 16:50
PROVIDERS: ADMIT Internal Medicine; ATTEND Internal Medicine
PROC: 0DJ08ZZ Inspection of Upper Intestinal Tract, Via Natural or Artificial Opening Endoscopic (ICD-10-PCS; principal; 2018-05-17 12:01)
DX: K29.21 Alcoholic gastritis with bleeding (principal); D62 Acute posthemorrhagic anemia; D68.4 Acquired coagulation factor deficiency; F10.10 Alcohol abuse, uncomplicated; K70.9 Alcoholic liver disease, unspecified; Z71.41 Alcohol abuse counseling and surveillance of alcoholic; F17.210 Nicotine dependence, cigarettes, uncomplicated; K29.80 Duodenitis without bleeding; Z80.6 Family history of leukemia; Z83.79 Family history of other diseases of the digestive system
CPT/HCPCS: 36415; 43235; 71045; 80048; 80053; 83690; 83735; 84484; 85025; 85610; 85730; 93005; 96361; 96374; 96375; 99291

== ENCOUNTER 2019-02-21 01:11 | Emergency (ER) | payer OTHER ==
[2019-02-21 01:15] VITALS: RESP 18; TEMP 97.3
--- NOTE | 2019-02-21 01:57 | XR ---
EXAMINATION TYPE: XR soft tissue neck DATE OF EXAM: 02/21/2019 COMPARISON: NONE HISTORY: Possible foreign body TECHNIQUE: 2 view FINDINGS: Epiglottis is normal. Subglottic trachea appears normal. Tonsils and adenoids appear normal . There is no sign of radiopaque foreign body. Prevertebral soft tissues are not enlarged. IMPRESSION: Negative exam. No evidence of a foreign body.
[2019-02-21] MEDS ORDERED: LORazepam 1 MG TAB PO STA (02:02)
--- NOTE | 2019-02-21 02:21 | ED ---
General Adult HPI - General Chief complaint: ENT Stated complaint: Poss food stuck in throat Time Seen by Provider: 02/21/19 01:18 Source: patient, RN notes reviewed, old records reviewed Mode of arrival: ambulatory Limitations: no limitations - History of Present Illness Initial comments: 53-year-old male patient past history of gastritis presents to ED for chief complaint of sensation of foreign body in throat after swallowing a piece of beef jerky. Patient reports that is similar to a Slim Rian. Reports that he feels as if it is stuck around his cricoid cartilage region. Denies any shortness of breath or any other complaints. Has been able tolerate fluids without difficulty. Patient also reports he is very anxious. Denies suicidal homicidal ideations. Systemic: Pt denies fatigue, fever/chills, rash. Pt denies weakness, night sweats, weight loss. Neuro: Pt denies headache, visual disturbances, syncope or pre-syncope. HEENT: Pt denies ocular discharge or irritation, otalgia, rhinorrhea, pharyngitis or notable lymphadenopathy. Cardiopulmonary: Pt denies chest pain, SOB, heart palpitations, dyspnea on exertion. Abdominal/GI: Pt denies abdominal pain, n/v/d. : Pt denies dysuria, burning w/ urination, frequency/urgency. Denies new onset urinary or bowel incontinence. MSK: Pt denies myalgia, loss of strength or function in extremities. Neuro: Pt denies new onset weakness, paresthesias. - Related Data Previous Rx's Medication Instructions Recorded Pantoprazole [Protonix] 40 mg PO AC-BRKFST 42 Days #42 05/18/18 tablet. Allergies Allergy/AdvReac Type Severity Reaction Status Date / Time No Known Allergies Allergy Verified 05/15/18 14:56 Review of Systems ROS Statement: Those systems with pertinent positive or pertinent negative responses have been documented in the HPI. ROS Other: All systems not noted in ROS Statement are negative. Past Medical History Past Medical History: GI Bleed Additional Past Medical History / Comment(s): treated 6 yrs ago for the same r/t ETOH History of Any Multi-Drug Resistant Organisms: None Reported Past Surgical History: No Surgical Hx Reported Past Anesthesia/Blood Transfusion Reactions: No Reported Reaction Past Psychological History: No Psychological Hx Reported Smoking Status: Current every day smoker Past Alcohol Use History: Heavy Past Drug Use History: None Reported - Past Family History Father Additional Family Medical History / Comment(s): patient state his dads side had heart disease and leukemia Mother Additional Family Medical History / Comment(s): chrones disease General Exam - General Exam Comments Initial Comments: Constitutional: NAD, AOX3, Pt has pleasant affect. HEENT: NC/AT, trachea midline, neck supple, no lymphadenopathy. Posterior pharynx non erythematous, without exudates. External ears appear normal, without discharge. Mucous membranes moist. Eyes PERRLA, EOM intact. There is no scleral icterus. No pallor noted. Cardiopulmonary: RRR, no murmurs, rubs or gallops, no JVD noted. Lungs CTAB in anterior and posterior campbell. No peripheral edema. Abdominal exam: Abdomen soft and non-distended. Abdomen non-tender to palpation in all 4 quadrants. Bowel sounds active in LLQ. No hepatosplenomegaly. No ecchymosis Neuro: CN II-XII grossly intact. No nuchal rigidity. No raccon eyes, no cortez sign, no hemotympanum. No cervical spinal tenderness. MSK: No posterior calf tenderness bilaterally, homans sign negative bilaterally. Posterior tibialis and radial pulse +2 bilaterally. Sensation intact in upper and lower extremities. Full active ROM in upper and lower extremities, 5/5 stregnth. Limitations: no limitations Course Vital Signs 02/21/19 02/21/19 02/21/19 01:12 02:05 02:33 Temperature 97.3 F L Pulse Rate 115 H 112 H 100 Respiratory 18 18 18 Rate Blood Pressure 197/100 161/99 151/66 O2 Sat by Pulse 98 98 98 Oximetry Medical Decision Making - Medical Decision Making 53-year-old male patient past history of gastritis presents to ED for chief complaint of sensation of foreign body in throat after swallowing a piece of beef jerky. Patient reports that is similar to a Slim Rian. Reports that he feels as if it is stuck around his cricoid cartilage region. Denies any shortness of breath or any other complaints. Has been able tolerate fluids without difficulty. Patient also reports he is very anxious. Denies suicidal homicidal ideations. Patient vital signs and she displayed hypertension and mild tachycardia. This likely due to anxiety. With the exception limits upon discharge. Physical exam did not display acute pathology. Soft tissue neck didn't display acute process. Patient has been drinking carbonated beverages without any difficulty. Patient does report he had upper endoscopy back in May 2018 with reportedly benign. Patient feels as if the foreign bodies no longer in his throat. Patient was discharged with GI and primary care follow-up tomorrow. Patient declined EKG for tachycardia. Denies any pain. Case discussed with Dr. Garcia. Disposition Clinical Impression: Throat pain Disposition: HOME SELF-CARE Condition: Stable Instructions (If sedation given, give patient instructions): Esophagitis (ED) Additional Instructions: Follow-up with netbackup administrator tomorrow. Follow with primary care provider tomorrow. Return to ER if condition worsens. Is patient prescribed a controlled substance at d/c from ED?: No Referrals: Tony Khanna III, MD [Primary Care Provider] - 1-2 days Eboni Chambers MD [STAFF PHYSICIAN] - 1-2 days
[2019-02-21 02:33] VITALS: BP 151/66; PULSE 100
== END 2019-02-21 03:18 | disposition home or self-care (01) ==
LOC: EC 01:11
DX: R07.0 Pain in throat (principal); R00.0 Tachycardia, unspecified; R03.0 Elevated blood-pressure reading, without diagnosis of hypertension; F17.200 Nicotine dependence, unspecified, uncomplicated
CPT/HCPCS: 70360; 99284

== ENCOUNTER 2019-04-13 08:16 | Emergency (ER) | payer OTHER ==
[2019-04-13 08:21] VITALS: TEMP 98.1
[2019-04-13] MEDS ORDERED: SODIUM CHLORIDE 0.9% 1,000 ML IV STA ×2 (08:35)
[2019-04-13] MEDS ORDERED: diphenhydrAMINE 50 MG/ML 1 ML VIAL IVP STA (08:35)
[2019-04-13 08:56] LABS: Basophils # (A) 0.1 k/uL (0-0.2); Basophils % (A) 2 %; Eosinophils # (A) 0.1 k/uL (0-0.7); Eosinophils % (A) 1 %; HCT 44.6 % (39.0-53.0); HGB 14.8 gm/dL (13.0-17.5); Lymphocytes # (A) 1.1 k/uL (1.0-4.8); Lymphocytes % (A) 18 %; MCH 32.9 pg (25.0-35.0); MCHC 33.1 g/dL (31.0-37.0); MCV 99.6 fL (80.0-100.0); Macrocytosis Slight; Mean Platelet Volume 10.4; Monocytes # (A) 0.3 k/uL (0-1.0); Monocytes % (A) 5 %; Neutrophils # (A) 4.3 k/uL (1.3-7.7); Neutrophils % (A) 73 %; RBC 4.48 m/uL (4.30-5.90); RDW 15.3 % (11.5-15.5)
[2019-04-13 09:05] LABS: ALT 29 U/L (4-49); AST 116 U/L (17-59); African American GFR (CKD) >90 (>60 ml/min/1.73 sqM); Albumin 3.7 g/dL (3.5-5.0); Alkaline Phosphatase 179 U/L (38-126); Anion Gap 15 mmol/L; Blood Urea Nitrogen 4 mg/dL (9-20); Calcium 8.4 mg/dL (8.4-10.2); Carbon Dioxide 17 mmol/L (22-30); Chloride 106 mmol/L (98-107); Creatine Kinase 266 U/L (55-170); Glucose 136 mg/dL (74-99); Magnesium 1.5 mg/dL (1.6-2.3); Non-African American GFR(CKD) >90 (>60 ml/min/1.73 sqM); Potassium 3.8 mmol/L (3.5-5.1); Sodium 138 mmol/L (137-145); Total Bilirubin 5.9 mg/dL (0.2-1.3); Total Protein 9.1 g/dL (6.3-8.2)
--- NOTE | 2019-04-13 09:05 | ED ---
Allergic Reaction HPI - General Chief complaint: Allergic Reaction Stated complaint: allergic reaction Time Seen by Provider: 04/13/19 08:29 Source: patient, RN notes reviewed Mode of arrival: ambulatory Limitations: no limitations - History of Present Illness Initial Comments: This is a 53 year old male with a hx of anxiety whose is in hospice who presents with the onset this am of tremors to his extremities about 6 am he has never had this before and relates it to the medication. No other modifying factors. Patient denies any fevers chills nausea vomiting sweats or other symptoms. MD Complaint: allergic reaction, other - Related Data Home Medications Medication Instructions Recorded Confirmed Melatonin 3 mg PO HS PRN 04/13/19 04/13/19 Previous Rx's Medication Instructions Recorded Magnesium 200 mg PO AC-BID #14 tablet 04/13/19 Allergies Allergy/AdvReac Type Severity Reaction Status Date / Time No Known Allergies Allergy Verified 04/13/19 10:18 Review of Systems ROS Statement: Those systems with pertinent positive or pertinent negative responses have been documented in the HPI. ROS Other: All systems not noted in ROS Statement are negative. Past Medical History Past Medical History: GI Bleed Additional Past Medical History / Comment(s): treated 6 yrs ago for the same r/t ETOH History of Any Multi-Drug Resistant Organisms: None Reported Past Surgical History: No Surgical Hx Reported Past Anesthesia/Blood Transfusion Reactions: No Reported Reaction Past Psychological History: No Psychological Hx Reported Smoking Status: Current every day smoker Past Alcohol Use History: Occasional Past Drug Use History: None Reported - Past Family History Father Additional Family Medical History / Comment(s): patient state his dads side had heart disease and leukemia Mother Additional Family Medical History / Comment(s): chrones disease General Exam - General Exam Comments Initial Comments: This is a well-developed well-nourished awake alert oriented 3 male Limitations: no limitations General appearance: alert, anxious Head exam: Present: atraumatic, normocephalic, normal inspection Eye exam: Present: normal appearance, PERRL, EOMI. Absent: scleral icterus, conjunctival injection, periorbital swelling ENT exam: Present: mucous membranes dry Neck exam: Present: normal inspection, full ROM, other (No stridor JVD or bruits). Absent: tenderness, meningismus, lymphadenopathy Respiratory exam: Present: normal lung sounds bilaterally. Absent: respiratory distress, wheezes, rales, rhonchi, stridor Cardiovascular Exam: Present: normal rhythm, tachycardia, normal heart sounds. Absent: systolic murmur, diastolic murmur, rubs, gallop, clicks GI/Abdominal exam: Present: soft, normal bowel sounds. Absent: distended, tenderness, guarding, rebound, rigid Extremities exam: Present: full ROM, normal capillary refill, other (Some tremors noted to the upper extremities). Absent: tenderness, pedal edema, joint swelling, calf tenderness Back exam: Present: normal inspection Neurological exam: Present: alert, oriented X3, CN II-XII intact Psychiatric exam: Present: normal affect, anxious Skin exam: Present: warm, dry, intact, normal color. Absent: rash Course Vital Signs 04/13/19 04/13/19 04/13/19 08:18 08:21 08:30 Temperature 98.1 F Pulse Rate 123 H Respiratory 18 20 18 Rate Blood Pressure 179/88 O2 Sat by Pulse 98 Oximetry 04/13/19 09:21 Temperature Pulse Rate 110 H Respiratory 18 Rate Blood Pressure 155/93 O2 Sat by Pulse 99 Oximetry - Reevaluation(s) Reevaluation #1: 04/13/19 10:42 Patient is feeling much improved after IV fluids and IV Benadryl. Medical Decision Making - Medical Decision Making The patient is feeling improved this time I did have a long discussion with him and his family regarding the findings. Patient does demonstrate evidence of dehydration also hypomagnesemia. He'll be placed on supplements. He was again cautioned about drinking alcohol he does demonstrate elevated liver enzymes. He is in agreement with this. He's also stopped taking the medication may use Benadryl as needed. - Lab Data Result diagrams: 04/13/19 08:43 04/13/19 08:43 Lab Results 04/13/19 04/13/19 Range/Units 08:43 08:43 WBC 6.0 (3.8-10.6) k/uL RBC 4.48 (4.30-5.90) m/uL Hgb 14.8 (13.0-17.5) gm/dL Hct 44.6 (39.0-53.0) % MCV 99.6 (80.0-100.0) fL MCH 32.9 (25.0-35.0) pg MCHC 33.1 (31.0-37.0) g/dL RDW 15.3 (11.5-15.5) % Plt Count 84 L (150-450) k/uL Neutrophils % 73 % Lymphocytes % 18 % Monocytes % 5 % Eosinophils % 1 % Basophils % 2 % Neutrophils # 4.3 (1.3-7.7) k/uL Lymphocytes # 1.1 (1.0-4.8) k/uL Monocytes # 0.3 (0-1.0) k/uL Eosinophils # 0.1 (0-0.7) k/uL Basophils # 0.1 (0-0.2) k/uL Manual Slide Review Performed Large Platelets Present Macrocytosis Slight Sodium 138 (137-145) mmol/L Potassium 3.8 (3.5-5.1) mmol/L Chloride 106 (98-107) mmol/L Carbon Dioxide 17 L (22-30) mmol/L Anion Gap 15 mmol/L BUN 4 L (9-20) mg/dL Creatinine 0.72 (0.66-1.25) mg/dL Est GFR (CKD-EPI)AfAm >90 (>60 ml/min/1.73 sqM) Est GFR (CKD-EPI)NonAf >90 (>60 ml/min/1.73 sqM) Glucose 136 H (74-99) mg/dL Calcium 8.4 (8.4-10.2) mg/dL Magnesium 1.5 L (1.6-2.3) mg/dL Total Bilirubin 5.9 H (0.2-1.3) mg/dL AST 116 H (17-59) U/L ALT 29 (4-49) U/L Alkaline Phosphatase 179 H (38-126) U/L Creatine Kinase 266 H (55-170) U/L Total Protein 9.1 H (6.3-8.2) g/dL Albumin 3.7 (3.5-5.0) g/dL TSH 2.170 (0.465-4.680) mIU/L - EKG Data -: EKG Interpreted by Me EKG Comments: EKG shows sinus tachycardia of 113. Interval 146 QRS duration 80 QT since QTC 338/[address]-T wave changes Disposition Clinical Impression: Medication reaction, Idiosyncratic reaction to medication after proper dose, Dehydration, Hypomagnesemia Disposition: HOME SELF-CARE Condition: Good Instructions (If sedation given, give patient instructions): General Allergic Reaction (ED), Dehydration (ED), Hypomagnesemia (ED) Additional Instructions: 25 mg of [id number] Benadryl every 6 hours when necessary. Do not take the medications were recently prescribed. Prescriptions: Magnesium 200 mg PO AC-BID #14 tablet Is patient prescribed a controlled substance at d/c from ED?: No Referrals: Tony Khanna III, MD [Primary Care Provider] - 1-2 days
[2019-04-13 09:22] LABS: Large Platelets Present; Platelet Count 84 k/uL (150-450)
[2019-04-13 10:53] VITALS: BP 156/95; PULSE 111
[2019-04-13 10:58] VITALS: RESP 20
== END 2019-04-13 10:59 | disposition home or self-care (01) ==
LOC: EC 08:16
DX: E83.42 Hypomagnesemia (principal); T50.905A Adverse effect of unspecified drugs, medicaments and biological substances, initial encounter; E86.0 Dehydration; R74.8 Abnormal levels of other serum enzymes; F17.200 Nicotine dependence, unspecified, uncomplicated
CPT/HCPCS: 36415; 93005; 80053; 84443; 82550; 83735; 85025; 99283; 96374; 96361 ×2; J1200

== ENCOUNTER → 2019-10-13 | Outpatient (CLI) | payer OTHER ==
--- NOTE | 2019-10-13 08:34 | US ---
EXAMINATION TYPE: US liver DATE OF EXAM: 10/13/2019 COMPARISON: NONE CLINICAL HISTORY: F10.950 Alcohol use,. EXAM MEASUREMENTS: Liver Length: 15.9 cm Gallbladder Wall: 0.6 cm CBD: 0.3 cm Right Kidney: 14.7 x 5.3 x 6.9 cm Pancreas: Mostly obscured by bowel gas, portions visualized wnl Liver: nodular, hyperechoic liver, cirrhotic appearance Gallbladder: thick edematous wall Evidence for sonographic Kaur's sign: no CBD: wnl Right Kidney: shadowing echogenic foci, probable stone measuring 0.6 x 0.7 x 0.7cm, measures large Mild ascites. IMPRESSION: 1. Probable hepatic cirrhosis. 2. Ascites. 3. Nonobstructing nephrolithiasis.
== END | disposition home or self-care (01) ==
LOC: RADUSWWP 07:41
PROVIDERS: ATTEND Family Medicine
DX: R18.8 Other ascites (principal); N20.0 Calculus of kidney
CPT/HCPCS: 76705

== ENCOUNTER 2020-05-03 12:21 | Day surgery (SDC) | payer OTHER ==
[2020-05-03 13:08] VITALS: RESP 18; TEMP 97.8
[2020-05-03 13:14] LABS: African American GFR (CKD) >90 (>60 ml/min/1.73 sqM); Non-African American GFR(CKD) >90 (>60 ml/min/1.73 sqM)
[2020-05-03 13:20] LABS: Mean Platelet Volume 7.7
[2020-05-03 13:27] LABS: Platelet Count 94 k/uL (150-450)
[2020-05-03] MEDS: ALBUMIN HUMAN 25% 50 ML in EMPTY BAG 1 BAG IVPB SCH ×4 (13:30→14:38)
[2020-05-03 13:57] LABS: INR 1.9 (<1.2); Prothrombin Time 19.1 sec (9.0-12.0)
[2020-05-03 16:22] VITALS: BP 104/65; PULSE 87
--- NOTE | 2020-05-04 12:23 | US ---
Ultrasound-guided paracentesis. DATE OF EXAM: 05/03/2020 CLINICAL HISTORY: Ascites The procedure was discussed with the patient. The risks, complications, benefits, and alternatives we re discussed and any questions were answered. Informed consent was obtained. The patient was placed s upine on the ultrasound table and prepped and draped in the usual sterile fashion. All elements of maximal barrier technique were utilized. Under ultrasound guidance, access into the right lower quadrant was obtained, via the paracentesis catheter system and direct ultrasound guidanc e. Approximately 10.6 liters of straw-colored fluid was removed. The patient was stable throughout the p rocedure and remained stable upon discharge from Department of Radiology. IMPRESSION: Successful paracentesis under ultrasound guidance.
== END 2020-05-03 16:26 | disposition home or self-care (01) ==
LOC: RADPROMAIN 12:21
PROVIDERS: ATTEND Internal Medicine Gastroenterology
DX: R18.8 Other ascites (principal)
CPT/HCPCS: 82565; 85049; 85610; 49083; P9047